=== PATIENT | female | born 1955 | race Hispanic/Latino ===

== ENCOUNTER 2019-04-25 12:41 | Emergency (ER) | payer OTHER, SELFPAY ==
[~2019-04-25 12:41] MED LIST: DILT120T15 PO; LOSA100T58 PO
[2019-04-25 13:10] LABS: APPEARANCE,URINE CLEAR (CLEAR); BILIRUBIN,URINE NEGATIVE (NEGATIVE); COLOR,URINE YELLOW (YELLOW); GLUCOSE, URINE (UA) NEGATIVE (NEGATIVE); KETONES,URINE NEGATIVE (NEGATIVE); LEUKOCYTE ESTERASE ,URINE NEGATIVE (NEGATIVE); NITRATE,URINE NEGATIVE (NEGATIVE); OCCULT BLOOD,URINE NEGATIVE (NEGATIVE); PROTEIN,URINE NEGATIVE (NEGATIVE); UROBILINOGEN,URINE 0.2 mg/dL (0.2-1.0)
[2019-04-25] MEDS ORDERED: MORPHINE SULFATE 4 MG/1ML SYG ONE (13:53)
[2019-04-25 14:21] LABS: BASOPHILS % (AUTO) 0.9 % (0.0-5.0); EOSINOPHILS % (AUTO) 2.2 % (0.0-8.0); HEMATOCRIT 41.3 % (36-48); LYMPHOCYTES % (AUTO) 24.3 % (21.0-51.0); MEAN CORPUSCULAR HEMOGLOBIN 29.4 pg (27.0-33.0); MEAN CORPUSCULAR HGB CONC 33.9 g/dL (32.0-36.0); MEAN CORPUSCULAR VOLUME 86.7 fL (79-99); MONOCYTES % (AUTO) 8.9 % (3.0-13.0); NEUTROPHILS % (AUTO) 63.7 % (40.0-77.0); PLATELET COUNT (AUTO) 237 K/uL (130-400); RED BLOOD CELL COUNT(AUTO) 4.77 MIL/uL (4.00-5.50); RED CELL DISTRIBUTION WIDTH 14.3 % (11.0-15.5); WHITE BLOOD COUNT (AUTO) 8.3 K/uL (4.8-10.8)
[2019-04-25 14:31] LABS: POTASSIUM 3.9 mmol/L (3.5-5.1)
[2019-04-25 14:36] LABS: ALBUMIN 4.1 g/dL (3.5-5.0); BILIRUBIN,TOTAL 0.3 mg/dL (0.2-1.0); TOTAL PROTEIN, SERUM 8.1 g/dL (6.0-8.3)
== END 2019-04-25 16:17 | disposition home or self-care (01) ==
LOC: EDH 12:41
DX: K80.20 Calculus of gallbladder without cholecystitis without obstruction (principal); K76.0 Fatty (change of) liver, not elsewhere classified; K76.89 Other specified diseases of liver; M54.6 Pain in thoracic spine; I10 Essential (primary) hypertension; Z98.51 Tubal ligation status; Z88.6 Allergy status to analgesic agent
CPT/HCPCS: 36415; 74176; 80053; 81003; 85025; 96374; 99285; J2270

== ENCOUNTER 2019-09-29 04:02 | Emergency (ER) | payer OTHER ==
[2019-09-29] MEDS ORDERED: LIDOCAINE HCL 2% VISCOUS 15 ML UDCUP ONE (05:34)
[2019-09-29] MEDS ORDERED: MAG HYDROX/AL HYDROX/SIMETH ES 30 ML SUSP UDCUP ONE (05:34)
[2019-09-29] MEDS ORDERED: ALBUTEROL SULFATE 0.083% 2.5 MG/3 ML INH IH ONE (05:41)
[2019-09-29] MEDS ORDERED: LEVOFLOXACIN 500 MG TABLET ONE (06:53)
[2019-09-29] MEDS ORDERED: ORPHENADRINE CITRATE 30 MG/ML ML ONE (06:53)
== END 2019-09-29 07:09 | disposition home or self-care (01) ==
LOC: EDH 04:02
DX: S29.011A Strain of muscle and tendon of front wall of thorax, initial encounter (principal); J18.8 Other pneumonia, unspecified organism; I10 Essential (primary) hypertension; Z88.6 Allergy status to analgesic agent; Z98.51 Tubal ligation status; X58.XXXA Exposure to other specified factors, initial encounter; Y93.89 Activity, other specified; Y92.89 Other specified places as the place of occurrence of the external cause; Y99.8 Other external cause status
CPT/HCPCS: 71046; 94640; 96372; 99284; J2360

== ENCOUNTER 2024-09-13 20:43 | Emergency (ER) | payer MEDICARE ==
[~2024-09-13] VITALS: Ht 157.5 cm; Wt 96.6 kg
[~2024-09-13 20:43] MED LIST changes: +AMLO5TAB4 PO; -DILT120T15 PO; -LOSA100T58 PO; +LOSA100T59 PO
--- NOTE | 2024-09-13 20:51 | ERN ---
ED Note History of Present Illness Stated Complaint: NAUSEA, URINARY FREQUENCY, BLOATED AND BURPING Chief Complaint: Urinary Frequency Time Seen by MD: 20:46 Dictation: PATIENT IS A 69-YEAR-OLD FEMALE COMING IN WITH NAUSEA, URINARY URGENCY AND FREQUENCY SHE HAS HAD FOR SEVERAL DAYS. SHE STATES SHE JUST GOT OVER A URINARY TRACT INFECTION FIVE MONTHS AGO AND WAS TREATED BY HER DOCTOR AT [facility]. SHE STATES THEY GAVE HER AMOXICILLIN SO SHE WENT TO [place] AND BOUGHT SOME AMOXICILLIN AND STARTED TAKING IT YESTERDAY. Allergies: Coded Allergies: ibuprofen (Verified Allergy, Unknown, 11/23/23) Home Meds Active Scripts Amlodipine Besylate (Norvasc 5Mg Tab) 5 Mg Tablet, 5 MG PO AM, #30 TAB Prov:BALAJIDONALD Elvia FOLDER MACHINE OPERATOR 11/26/23 Reported Medications Losartan Potassium (Losartan Potassium) 100 Mg Tablet, 100 MG PO AM, TAB 09/11/15 Past Medical History Past Medical History: Diabetes-Type II, High Cholesterol, Hypertension Surgical History: BTL Social History: Negative, Lives with family History: Not Applicable RN Note Reviewed/Agreed w/PFSH: Yes Review of System Dictation CONSTITUTIONAL: NEGATIVE EXCEPT FOR HPI HEAD/FACE: NEGATIVE EXCEPT FOR HPI EENT: NEGATIVE EXCEPT FOR HPI RESPIRATORY: NEGATIVE EXCEPT FOR HPI GASTROINTESTINAL/ABDOMINAL: NEGATIVE EXCEPT FOR HPI NAUSEA GENITOURINARY: NEGATIVE EXCEPT FOR HPI URINARY URGENCY AND FREQUENCY MUSCULOSKELETAL: NEGATIVE EXCEPT FOR HPI INTEGUMENTARY: NEGATIVE EXCEPT FOR HPI NEUROLOGICAL/PSYCH: NEGATIVE EXCEPT FOR HPI HEMATOLOGIC/LYMPHATIC: NEGATIVE EXCEPT FOR HPI ALL SYSTEMS NEGATIVE, EXCEPT NOTED ABOVE. 13 POINT REVIEW OF SYSTEMS ASSESSED AND ALL NEGATIVE EXCEPT FOR ABOVE. Initial Vital Sign VS Vital Signs Date Time Temp Pulse Resp B/P (MAP) Pulse Ox O2 Delivery O2 Flow Rate FiO2 09/13/24 20:45 97.5 99 16 199/108 97 Room Air 0 Physical Exam Dictation VITAL SIGNS REVIEWED GENERAL APPEARANCE: ALERT, ORIENTED X 3, MY ACUTE DISTRESS, WELL DEVELOPED, NOURISHED. HEAD AND FACE: NON-TRAUMATIC. EYES: PERRL, PINK CONJUNCTIVAS, EYELID NO TRAUMA, ANTERIOR CHAMBER WITH ARCUS SENILIS. EARS: PINNAS INTACT AND NO SIGNS OF TRAUMA OR ERYTHEMA EAR CANALS CLEAR AND NO DISCHARGE TM NO ERYTHEMA NOSE: NO DISCHARGE, NO BLEEDING. OROPHARYNX: MOUTH NORMAL, TONGUE PINK, PHARYNX CLEAR,NO ERYTHEMA, TONSILS NO EXUDATES, NO ABSCESSES NOTED, MUCOUS MEMBRANE MOIST NECK: SUPPLE, NON-TENDER, NO THYROMEGALY, NO MASSES, NO JVD, NO BRUITS BREAST:DEFERRED CHEST:NO TENDERNESS, NO CREPITUS, NO PARADOXICAL MOVEMENT, NO RETRACTIONS LUNGS:CLEAR, WELL-VENTILATED, SYMMETRIC, NO RALES, NO WHEEZING, NO RHONCHI, NO STRIDOR, GOOD BREATH SOUNDS BILATERALLY HEART: REGULAR RATE, REGULAR RHYTHM, NO MURMUR, NO GALLOPS VASCULAR: NO PERIPHERAL EDEMA, ABDOMEN: SOFT, POSITIVE BOWEL SOUNDS, NONDISTENDED, NO GUARDING, NONTENDER, NO REBOUND, NO MASSES NO HEPATOMEGALY, NO SPLENOMEGALY, NO HORVATH'S SIGN, NO HERNIAS. RECTAL: DEFERRED GENITAL: DEFERRED MILD SUPRAPUBIC TENDERNESS, PALPATED OVER HER CLOTHES NEUROLOGICAL: NORMAL SPEECH, MOTOR FUNCTION INTACT, SENSORY FUNCTION INTACT MUSCULOSKELETAL: NECK NONTENDER, FULL RANGE OF MOTION, BACK NONTENDER, FULL RANGE OF MOTION, EXTREMITIES: NONTENDER, FULL RANGE OF MOTION SKIN: COLOR PINK, DRY, NO TURGOR, NO RASH, NO LACERATIONS, NO ABRASIONS, NO CONTUSIONS. LYMPHATIC: DEFERRED Results (Laboratory/Radiology) Laboratory/Radiology Laboratory Tests Test 09/13/24 21:22 Urine Color COLORLESS (YELLOW) Urine Appearance CLEAR (CLEAR) Urine pH 7.0 (5.0-8.0) Urine Specific [place] 1.003 (1.001-1.031) Urine Protein NEGATIVE mg/dL (NEGATIVE) Urine Glucose (UA) NEGATIVE mg/dL (NEGATIVE) Urine Ketones NEGATIVE mg/dL (NEGATIVE) Urine Occult Blood NEGATIVE (NEGATIVE) Urine Nitrate NEGATIVE (NEGATIVE) Urine Bilirubin NEGATIVE mg/dL (NEGATIVE) Urine Urobilinogen 0.2 mg/dL (0.2-1.0) Urine Leukocyte Esterase NEGATIVE Cain/uL Labs Reviewed?: Yes ED Course ED Course Orders Procedure Category Date Status Time Urinalysis Profile LAB 09/13/24 Complete 20:48 Phenazopyridine Hcl PHA 09/13/24 Complete 200 Mg Tab (Pyridium 21:00 Acetaminophen 500mg PHA 09/13/24 Complete Tab (Tylenol 500mg T 21:00 Current Medications Medications (Trade) Dose Ordered Sig/Annalee Route PRN Reason Start Time Stop Time Status Last Admin Dose Admin Acetaminophen (TYLenol 500MG TAB) 1,000 mg ONCE ONCE PO 09/13/24 21:00 09/13/24 21:01 DC 09/13/24 20:57 Phenazopyridine HCl (PYRIdium HCL 200 MG TAB) 200 mg ONCE ONCE PO 09/13/24 21:00 09/13/24 21:01 DC 09/13/24 20:56 Vital Signs Date Time Temp Pulse Resp B/P (MAP) Pulse Ox O2 Delivery O2 Flow Rate FiO2 09/13/24 20:45 97.5 99 16 199/108 97 Room Air 0 2150 PATIENT STATES SHE FEELS BETTER AFTER TREATMENT WISHES TO BE TREATED FOR CONSTIPATION. Medical Decision Making MDM MEDICAL DECISION-MAKING BASED ON URINALYSIS. PATIENT STATES SHE FEELS BETTER AFTER TREATMENT WITH IBUPROFEN AND PYRIDIUM WANTS TO GO HOME. DX & DISP Disposition: Discharge Departure Impression: Primary Impression: Urinary frequency Additional Impression: Constipation Condition: Stable Scripts Lactulose (Lactulose) 10 Gram/15 Ml Solution 30 ML PO BID for constipation, #250 ML 0 Refills Prov: TIMA DAWSON NP 09/13/24 Phenazopyridine HCl (Pyridium) 200 Mg Tab 200 MG PO TIDPC for 3 Days, #9 TAB TAKE WITH FOOD TO PREVENT STOMACH UPSET. Prov: TIMA DAWSON NP 09/13/24 Additional Instructions: FOLLOW-UP WITH PRIMARY CARE PROVIDER IN 1 TO 2 DAYS. TAKE MEDICATIONS DIRECTED HERE IN THE EMERGENCY ROOM. OKAY TO CONTINUE HOME MEDICATIONS UNLESS OTHERWISE DISCUSSED DURING YOUR VISIT IN THE EMERGENCY ROOM TODAY. RETURN TO YOUR NEAREST EMERGENCY ROOM IF SYMPTOMS WORSEN OR IF THERE IS NO IMPROVEMENT. CALL 911 IF YOU NEED IMMEDIATE ASSISTANCE. TAKE TYLENOL OR MOTRIN [id number] NEEDED AND IF NO CONTRAINDICATIONS ARE PRESENT. INCREASE ORAL HYDRATION. A WOUND CULTURE OR URINE CULTURE WAS ORDERED HERE IN THE EMERGENCY ROOM DEPARTMENT PLEASE FOLLOW-UP WITH PRIMARY CARE PROVIDER AND ADVISE THEM TO GET REPEAT PORTS FROM OUR FACILITY. IF YOU HAD ANY FAUSTO WRAP/SPLINTS THAT WERE APPLIED HERE, PLEASE DO NOT REMOVE THEM UNTIL YOU SEE YOUR PRIMARY CARE OR SPECIALTY. TAKE PYRIDIUM DIRECTED UNTIL GONE. TAKE LACTULOSE DIRECTED WITH8 OZ OF WATER FOR CONSTIPATION. SEE YOUR PRIMARY CARE DOCTOR FOR FOLLOW UP. Referrals: ISAIAS VALERA PA-C (PCP) Time of Disposition: 21:50 I have reviewed the case, and I agree with, Diagnosis and Plan TIMA DAWSON NP Sep 13, 2024 20:51
[2024-09-13] MEDS: PHENAZOpyridine HCL 200 MG TAB 200 MG TABLET PO ONE (20:56)
[2024-09-13] MEDS: acetaMINOPHEN 500 MG TABLET PO ONE (20:57)
[2024-09-13 21:40] LABS: APPEARANCE,URINE CLEAR (CLEAR); BILIRUBIN,URINE NEGATIVE (NEGATIVE); COLOR,URINE COLORLESS (YELLOW); GLUCOSE, URINE (UA) NEGATIVE (NEGATIVE); KETONES,URINE NEGATIVE (NEGATIVE); LEUKOCYTE ESTERASE ,URINE NEGATIVE Leu/uL (NEGATIVE); NITRATE,URINE NEGATIVE (NEGATIVE); OCCULT BLOOD,URINE NEGATIVE (NEGATIVE); PROTEIN,URINE NEGATIVE (NEGATIVE); UROBILINOGEN,URINE 0.2 mg/dL (0.2-1.0)
[2024-09-13 21:42] LABS: ADD UA MICROSCOPIC NO
[2024-09-13] MEDS ORDERED: LACT-441 PO (21:51)
[2024-09-13] MEDS ORDERED: PHEN-847 PO (21:51)
[2024-09-13] MEDS: LACTULOSE 20 GM/30 ML UDCUP PO ONE (21:58)
[2024-09-13 22:02] VITALS: BP 166/89; PULSE 80; RESP 18; TEMP 97.5; O2SAT 98
== END 2024-09-13 22:02 | disposition home or self-care (01) ==
LOC: EDH 20:43
DX: K59.00 Constipation, unspecified (principal); R35.0 Frequency of micturition; E11.9 Type 2 diabetes mellitus without complications; E78.00 Pure hypercholesterolemia, unspecified; I10 Essential (primary) hypertension; Z88.6 Allergy status to analgesic agent; Z98.51 Tubal ligation status
CPT/HCPCS: 81003; 99284